=== PATIENT | female | born 2000 | race Caucasian/White ===

== ENCOUNTER → 2019-03-01 | Day surgery (SDC) | payer OTHER ==
[~2019-03-01] MED LIST: BUPIVACAINE 0.5% 30 ML SDV ONE; DEXAMETHASONE 4 MG/ML VIAL IVP PRN; DEXAMETHASONE 4 MG/ML VIAL ONE; ERTAPENEM 1 GM in NS 100 ML IV ONE; HYDROmorphONE/DILAUDID 1 MG/ML INJ IVP PRN; HYDROmorphONE/DILAUDID 2 MG/ML INJ IVP ONE; IOPAMIDOL (ISOVUE-300) 100 ML BTL ONE; LR 1,000 ML IV ONE; MIDAZOLAM 2 MG/2 ML VIAL IVP ONE; MIDAZOLAM 2 MG/2 ML VIAL ONE; NALOXONE HCL 0.4 MG/ML INJ IVP PRN; NS 1,000 ML IV ONE; ONDANSETRON 4 MG/2 ML VIAL IVP ONE; ONDANSETRON 4 MG/2 ML VIAL IVP PRN; ONDANSETRON 4 MG/2 ML VIAL ONE; PROPOFOL 200 MG/20 ML VIAL ONE; ROCURONIUM 50 MG/5 ML VIAL ONE; SUGAMMADEX SODIUM 200 MG/2 ML VIAL IVP ONE; fentaNYL 100 MCG/2 ML INJ ONE; oxyCODONE IR 5 MG TAB PO PRN
--- NOTE | 2019-03-01 04:10 | EDPHY ---
H & P Stated Complaint: epigastric pain Time Seen by Provider: 03/01/19 04:10 HPI/ROS: HPI CHIEF COMPLAINT: ABDOMINAL PAIN HISTORY OF PRESENT ILLNESS: Patient is a 19-year-old female she is otherwise healthy, denies any significant medical history she presents emergency room with abdominal pain. The abdominal pain started 3 hr ago does located the mid abdomen. She has had nausea but no vomiting, denies diarrhea, denies fever, denies urinary symptoms, denies chest pain or shortness of breath. Denies pleuritic pain. Pain is located mid abdomen. Burning and sharp stabbing sensation. Nonradiating. Past Medical History: Denies significant medical history Past Surgical History: Denies significant surgical history Social History: Denies drugs alcohol tobacco. Family History: Noncontributory ROS REVIEW OF SYSTEMS: 10 Systems were reviewed and negative with the exception of the elements mentioned in the history of present illness. Exam Constitutional triage nursing summary reviewed, vital signs reviewed, awake/ alert. Eyes normal conjunctivae and sclera, EOMI, PERRLA. HENT normal inspection, atraumatic, moist mucus membranes, no epistaxis, neck supple/ no meningismus, no raccoon eyes. Respiratory clear to auscultation bilaterally, normal breath sounds, no respiratory distress, no wheezing. Cardiovascular rate normal, regular rhythm, no murmur, no edema, distal pulses normal. Gastrointestinal mildly tender mid abdomen, no peritoneal signs, normal bowel sounds, no distension, no pulsatile mass. Genitourinary no CVA tenderness. Musculoskeletal no midline vertebral tenderness, full range of motion, no calf swelling, no tenderness of extremities, no meningismus, good pulses, neurovascularly intact. Skin pink, warm, & dry, no rash, skin atraumatic. Neurologic awake, alert and oriented x 3, AAOx3, moves all 4 extremities equally, motor intact, sensory intact, CN II-XII intact, normal cerebellar, normal vision, normal speech. Psychiatric normal mood/affect. Heme/Lymph/Immune no lymphadenopathy. Differential Diagnosis: Differential diagnosis includes but is not limited to and in no particular order: Bowel obstruction, appendicitis, gallbladder disease, diverticulitis, colitis, enteritis, perforated viscus, gastritis, GERD , esophagitis, urinary tract infection, pyelonephritis, kidney stones Medical Decision Making: Plan for this patient IV establishment IV fluid bolus , IV Dilaudid 0.5 mg for pain control IV Zofran for nausea, basic labs, CT scan abdomen pelvis with IV contrast to help delineate abdominal pain possible appendicitis. Re-evaluation: CT scan abdomen pelvis with IV contrast faxed to me by direct Radiology 5:20 a.m., this shows acute appendicitis. Retrocecal appendix measures approximately 10 cm in length is dilated measuring 8 mm in diameter and is intensely enhancing. IV Invanz ordered. I will consult surgery. Consulted Dr. Sadler, [id number]. Will plan on seeing patient/Dr. Anders . Source: Patient - Personal History LMP (Females 10-55): 1-7 Days Ago Current Tetanus Diphtheria and Acellular Pertussis (TDAP): Yes - Medical/Surgical History Hx Asthma: No Hx Chronic Respiratory Disease: No Hx Diabetes: No Hx Cardiac Disease: No Hx Renal Disease: No Hx Cirrhosis: No Hx Alcoholism: No Hx HIV/AIDS: No Hx Splenectomy or Spleen Trauma: No Other PMH: denies - Social History Smoking Status: Never smoked Constitutional: Initial Vital Signs Temperature (C) 36.6 C 03/01/19 03:56 Heart Rate 88 03/01/19 03:56 Respiratory Rate 16 03/01/19 03:56 Blood Pressure 142/94 H 03/01/19 03:56 O2 Sat (%) 97 03/01/19 03:56 O2 Delivery Mode Room Air O2 (L/minute) 2 Allergies/Adverse Reactions: No Known Allergies Allergy (Verified 03/01/19 08:03) Home Medications: Medication Instructions Recorded Herbals/Supplements -Info Only 1 each PO DAILY 03/01/19 Hydrocodone/Acetaminophen [[place] 1 each PO Q4H PRN #12 tablet 03/01/19 5-325 Tablet] Ibuprofen [Advil] 600 mg PO Q8 PRN #30 tablet 03/01/19 Medical Decision Making - Data Points Laboratory Results: Laboratory Results 03/01/19 04:20 03/01/19 04:20 Medications Given: Discontinued Medications Bupivacaine HCl (Sensorcaine 0.5% Vial) Confirm Administered Dose 30 ml .ROUTE .STK-MED ONE Stop: 03/01/19 09:52 Last Admin: 03/01/19 10:41 Dose: 22 ml Fentanyl (Sublimaze) 25 - 100 mcg IVP Q5M PRN PRN Reason: PACU, IMMEDIATE Pain control Stop: 03/01/19 10:48 Last Admin: 03/01/19 12:39 Dose: 50 mcg Hydromorphone HCl (Dilaudid) 0.5 mg IVP EDNOW ONE Stop: 03/01/19 04:16 Last Admin: 03/01/19 05:08 Dose: Not Given Sodium Chloride (Ns) 1,000 mls @ 0 mls/hr IV EDNOW ONE; Wide Open PRN Reason: Protocol Stop: 03/01/19 04:10 Last Admin: 03/01/19 04:21 Dose: 1,000 mls Ertapenem 1 gm/ Sodium (Chloride) 100 mls @ 200 mls/hr IV EDNOW ONE PRN Reason: Protocol Stop: 03/01/19 06:15 Last Admin: 03/01/19 06:43 Dose: Not Given Ceftriaxone Sodium/Dextrose (Rocephin 1 Gm (Premix)) 50 mls @ 100 mls/hr IV EDNOW ONE PRN Reason: Protocol Stop: 03/01/19 06:18 Last Admin: 03/01/19 06:30 Dose: 50 mls Metronidazole/Sodium Chloride (Flagyl 500 Mg (Premix)) 100 mls @ 100 mls/hr IV EDNOW ONE PRN Reason: Protocol Stop: 03/01/19 06:48 Last Admin: 03/01/19 06:37 Dose: 100 mls Lactated Ringer's (Lr) 1,000 mls @ 0 mls/hr IV ONCE ONE PRN Reason: As Directed Stop: 03/01/19 09:43 Last Admin: 03/01/19 09:55 Dose: 1,000 mls Midazolam HCl (Versed) 2 mg IVP ONCALL ONE Stop: 03/01/19 09:49 Last Admin: 03/01/19 10:05 Dose: 2 mg Ondansetron HCl (Zofran) 4 mg IVP EDNOW ONE Stop: 03/01/19 04:16 Last Admin: 03/01/19 05:08 Dose: Not Given Departure - Departure Disposition: [facility] Acute Clinical Impression: Acute appendicitis Qualifiers: Acute appendicitis type: with localized peritonitis Appendicitis gangrene presence: without gangrene Appendicitis perforation presence: without perforation Appendicitis abscess presence: without abscess Qualified Code(s): K35.30 - Acute appendicitis with localized peritonitis, without perforation or gangrene Condition: Good
[2019-03-01 04:30] LABS: PLATELET COUNT 361 10^3/uL (150-400)
--- NOTE | 2019-03-01 09:48 | PDANEPAE ---
KURT History of Present Illness Ashley HICKS Past Medical History - Cardiovascular History Hx Hypertension: No - Pulmonary History Hx COPD: No Hx Oxygen in Use at Home: No Hx Sleep Apnea: No - Endocrine History Hx Diabetes: No ANE Review of Systems Review of Systems: ANE Patient History - Allergies Allergies/Adverse Reactions: No Known Allergies Allergy (Verified 03/01/19 08:03) - Home Medications Home Medications: Herbals/Supplements -Info Only 1 each PO DAILY 03/01/19 [Last Taken Unknown] - NPO status NPO Since - Liquids (Date): 03/01/19 NPO Since - Liquids (Time): 00:00 NPO Since - Solids (Date): 03/01/19 NPO Since - Solids (Time): 00:00 - Smoking Hx Smoking Status: Never smoked KURT Labs/Vital Signs - Labs Result Diagrams: 03/01/19 04:20 03/01/19 04:20 - Vital Signs Blood Pressure: 116/83 Heart Rate: 84 Respiratory Rate: 18 O2 Sat (%): 97 Height: 170.18 cm Weight: 58.967 kg KURT Physical Exam - Airway Neck exam: FROM Mallampati Score: Class 2 Mouth exam: normal dental/mouth exam - Pulmonary Pulmonary: clear to auscultation - Cardiovascular Cardiovascular: regular rate and rhythym - ASA Status ASA Status: I, E ANE Anesthesia Plan Anesthesia Plan: general endotracheal anesthesia
--- NOTE | 2019-03-01 10:24 | GHP ---
[f rep st] HISTORY AND PHYSICAL DATE OF ADMISSION: 03/01/2019 CHIEF COMPLAINT: Acute appendicitis. HISTORY OF PRESENT ILLNESS: The patient is a 19-year-old woman who has had occasional abdominal pain throughout the weekend and in general has just not felt well. However, at midnight, she had significant abdominal pain starting in the mid abdomen, and then started radiating to the right lower quadrant. She denies vomiting. She has no sick contacts. She does report that it hurt going over the bumps on her way to the ER. PAST MEDICAL HISTORY: None. PAST SURGICAL HISTORY: None. SOCIAL HISTORY: Has used marijuana once, no regular use of it. No alcohol. No tobacco. FAMILY HISTORY: Noncontributory. REVIEW OF SYSTEMS: No fevers or chills. Otherwise per HPI. PHYSICAL EXAM: VITAL SIGNS: 36.7, 84, 115/83, 18, 97%. GENERAL: Pleasant, well-nourished, well-groomed woman, on gurney, with friend. HEENT: Normocephalic. No gross hearing deficits. Mucous membranes moist. Pupils equal and round. No scleral icterus. LUNGS: Clear to auscultation bilaterally. No increased work of breathing. CARDIAC: Regular rate. ABDOMEN : Soft. Bowel sounds present. She is tender in the right lower quadrant. Umbilical ring. MUSCULOSKELETAL: Normal nails. PSYCH: Mood and affect normal. RESULTS: White count 7.84. Her CT scan shows retrocecal appendicitis measuring 8.1 mm in diameter. IMPRESSION AND PLAN: A 19-year-old with acute appendicitis. I will take her to the operating room for a laparoscopic appendectomy. The risks and benefits, including, but not limited to, stroke, heart attack, , blood clots, infection, bleeding, damage to surrounding structures were discussed. She had her questions answered to her satisfaction. We discussed staying as an inpatient for pain control or if it becomes a complicated appendectomy. At this point in time, the patient prefers to go home. /[id number]/MODL MTDD
--- NOTE | 2019-03-01 10:55 | POSTOPPROG ---
Post Op Note Date of Operation: 03/01/19 Surgeon: Catalina Anders Anesthesiologist: alon Anesthesia: GET(General Endotracheal) Pre-op Diagnosis: acute appendicitis Post-op Diagnosis: same Indication: 19 yo with acute appendicitis Procedure: lap appy Findings: inflamed appendix Inf/Abcess present in the surg proc area at time of surgery?: No EBL: Minimal Specimen(s): appendix
[2019-03-01] MEDS: fentaNYL 100 MCG/2 ML INJ IVP PRN ×3 (11:13→12:39)
[2019-03-01 12:08] VITALS: BP 117/67
--- NOTE | 2019-03-01 19:26 | GOP ---
[f rep st] OPERATIVE REPORT DATE OF OPERATION: 03/01/2019 SURGEON: Catalina Anders MD ANESTHESIA: General. ANESTHESIOLOGIST: Jourdan Steinberg DO PREOPERATIVE DIAGNOSIS: Acute appendicitis. POSTOPERATIVE DIAGNOSIS: Acute appendicitis. PROCEDURE PERFORMED: Laparoscopic appendectomy. FINDINGS: Acutely inflamed retrocecal appendix. SPECIMENS: Appendix. ESTIMATED BLOOD LOSS: 5 cc. INDICATIONS: The patient is a 19-year-old who developed abrupt onset of abdominal pain around midnight. It was initially in the upper mid abdomen and then located to the right lower quadrant. CT scan was obtained which showed acute appendicitis. DESCRIPTION OF PROCEDURE: The patient was brought into the operating room, placed supine on the table, and general anesthesia was administered. Her abdomen was prepped and draped in the usual sterile fashion. I infiltrated all sites with 0.5% Marcaine prior to making incisions. I made an incision in her umbilicus. I inserted the Veress needle. It passed the hanging drop test, however, insufflation pressures were high. I reinserted the Veress needle and this time insufflation pressures were low and then I insufflated the abdomen to a pressure of 15 mmHg. I placed a 5 mm camera with a trocar at this site. I explored her abdomen. There was no evidence of perforation. Under direct vision, I placed a 5 mm suprapubic trocar and a 10 mm trocar in the left lower quadrant. I gently rotated her cecum medially and was able to identify the retrocecal appendix. I made a window in the mesoappendix and then divided the mesoappendix at the junction with the cecum with an Endo HUMAIRA 45 white load. I then continued to divide the remaining appendiceal attachments and the mesentery. Hemostasis achieved at the staple line. The appendix was placed in an EndoCatch bag and retrieved via the 10 mm trocar. No other abnormalities noted. Trocars removed under direct vision. The abdomen allowed to desufflate. Fascia closed with 0 Vicryl, skin closed with 4-0 Monocryl. Dermabond applied. She was awakened in the operating room, extubated, transferred to PACU in stable condition. /[id number]/MODL MTDD
== END | disposition home or self-care (01) ==
LOC: UNDOADMIN 05:50 → FSGY 09:46 → UNDODISIN 14:00
PROVIDERS: ATTEND Surgery
PROC: 0DTJ4ZZ Resection of Appendix, Percutaneous Endoscopic Approach (ICD-10-PCS; principal; 2019-03-01 10:00)
DX: K35.80 Unspecified acute appendicitis (principal)
CPT/HCPCS: 96374; J0696; J1100; J1170; J1335; J2250; J2405; J2704; J3010; Q9967

== ENCOUNTER 2019-03-09 17:36 | Emergency (ER) | payer OTHER ==
[2019-03-09] MEDS ORDERED: PROMETHAZINE HCL 25 MG/ML INJ IVP ONE (17:48)
[2019-03-09] MEDS ORDERED: KETOROLAC 30 MG/1 ML SDV IVP ONE (17:48)
[2019-03-09] MEDS ORDERED: NS 1,000 ML IV ONE (17:48)
--- NOTE | 2019-03-09 17:52 | EDPHY ---
H & P Stated Complaint: SAME PAIN BEFORE APPY, NAUSEA/ S/P APPY 7 DAYS Time Seen by Provider: 03/09/19 17:48 HPI/ROS: HPI: This is a 19-year-old female who presents with Chief Complaint: Right lower quadrant and left lower quadrant abdominal pain x7 days Location: Right lower quadrant and left lower quadrant abdominal Quality: Pain Duration: 7-8 days Signs and Symptoms: no fever, no nausea, no vomiting, no hematemesis, no blood in stool, no abdominal bloating, no diarrhea, no back pain, no urinary symptoms , no vaginal bleeding/discharge, no indigestion, no chest pain, no shortness of breath Timing: Daily but worse today Severity: Moderate Context: Patient was seen in this emergency room on 03/01/2019 diagnosed with appendicitis and had laparoscopic appendectomy performed by Dr. Catalina Anders. Patient was discharged home the same day with hydrocodone. She reports that she only to had to take hydrocodone pain medications for approximately a day and half. She is having daily bowel movements. Since the surgery she has had constant nausea but today and has worsened to moderate intensity. She has not vomited, no fevers, no diarrhea. She reports that today she developed right lower quadrant and left lower quadrant pain that is nonradiating in nature. Last menstrual period was 2 weeks ago. She reports that today she also started to developed some burning with urination. Passing gas from below. Modifying Factors: None Comment: ROS: A comprehensive 10 system review of systems is otherwise negative aside from elements mentioned in the history of present illness. MEDICAL/SURGICAL/SOCIAL HISTORY: Medical history: Generally healthy. Does not take any regular medications. Surgical history: Appendectomy 03/01/2019 Social history: Student at [employer]. Family history noncontributory. CONSTITUTIONAL: Extremely well-appearing young adult white female, awake and alert, no obvious distress HEENT: Atraumatic and normocephalic, PERRL, EOMI. Nares patent; no rhinorrhea; no nasal mucosal edema. Tympanic membranes clear. Oropharynx clear, no exudate and moist pink mucosa. Airway patent. No lymphadenopathy. No meningismus. Cardiovascular: Normal S1/S2, regular rate, regular rhythm, without murmur rub or gallop. PULMONARY/CHEST: Symmetrical and nontender. Clear to auscultation bilaterally. Good air movement. No accessory muscle usage. ABDOMEN: Soft, nondistended, moderate right lower quadrant and left lower quadrant tenderness, normoactive bowel sounds x4 quadrants, 3 portal sites in the right lower quadrant left lower quadrant and periumbilical area are well- approximated with no discharge or surrounding induration or erythema. no rebound, no guarding, no peritoneal signs, no masses or organomegaly. No CVAT. EXTREMITIES: 2/2 pulses, strength 5/5, no deformities, no clubbing, no cyanosis or edema. NEUROLOGICAL: no focal neuro deficits. GCS 15. SKIN: Warm and dry, no erythema. no rash. Good capillary refill. Source: Patient Exam Limitations: No limitations - Personal History LMP (Females 10-55): 8-14 Days Ago Current Tetanus Diphtheria and Acellular Pertussis (TDAP): Unsure - Medical/Surgical History Hx Asthma: No Hx Chronic Respiratory Disease: No Hx Diabetes: No Hx Cardiac Disease: No Hx Renal Disease: No Hx Cirrhosis: No Hx Alcoholism: No Hx HIV/AIDS: No Hx Splenectomy or Spleen Trauma: No Other PMH: APPY 02/2019 - Social History Smoking Status: Never smoked Constitutional: Initial Vital Signs Temperature (C) 36.8 C 03/09/19 17:42 Heart Rate 96 03/09/19 17:42 Respiratory Rate 16 03/09/19 17:42 Blood Pressure 111/70 03/09/19 17:42 O2 Sat (%) 96 03/09/19 17:42 O2 Delivery Mode Room Air Allergies/Adverse Reactions: No Known Allergies Allergy (Verified 03/01/19 08:03) Home Medications: Medication Instructions Recorded Magnesium Citrate [Magnesium 300 ml PO ONCE #1 bottle 03/09/19 Citrate 300 ml (*)] Ondansetron Odt [Zofran Odt 4 mg 4 mg PO Q4 PRN #12 tab 03/09/19 (*)] Medical Decision Making - Diagnostics Imaging Results: Imaging Impressions Abdomen X-Ray 03/09/19 17:48 Impression: Large amount retained fecal material in the colon compatible with constipation. Abdomen CT 03/09/19 17:53 Impression: 1. Interval appendectomy without evidence of abscess, perforation, or obstruction. 2. Large amount retained fecal material in the colon compatible with constipation. Junioralmaz Varela was notified of these findings by telephone at 7:13 PM on 03/09/2019. ED Course/Re-evaluation: Vital signs reviewed and stable upon arrival. IV access, laboratory studies, urinalysis, CT abdomen and pelvis scan with contrast ordered Given 1 L normal saline, IV Toradol, IV promethazine 12.5 mg 180: Notified by RN that: pt declined pain med and phen only wants zofran 1845: Labs reviewed. No signs of leukocytosis/anemia/platelet dysfunction/LEX/ elevated LFTs/electrolyte imbalance/pancreatitis/. 185: Abdominal x-ray my read shows moderate stool burden in the right lower quadrant and ascending colon with nonobstructive bowel gas pattern in the transcending colon 1914: CT abdomen and pelvis scan per Dr. Pacheco, shows moderate constipation but no signs of obstruction, perforation, ileus, obstipation, diverticulitis. Urinalysis shows no signs of infection. No hematuria. Patient given prescription for Zofran and magnesium citrate and MiraLax as needed. Tolerating p.o. And appropriate for outpatient treatment. This patient was seen under the supervision of my secondary supervising physician. I evaluated care for this patient with attending. Differential Diagnosis: Abdominal pain in a female including but not limited to ovarian cyst, pelvic inflammatory disease, ovarian torsion, urinary tract infection, and appendicitis. - Data Points Laboratory Results: Laboratory Results 03/09/19 17:57 03/09/19 17:57 03/09/19 03/09/19 03/09/19 19:10 17:57 17:57 WBC RBC Hgb Hct MCV MCH MCHC RDW Plt Count MPV Neut % (Auto) Lymph % (Auto) [place] % (Auto) Eos % (Auto) Baso % (Auto) Nucleat RBC Rel Count Absolute Neuts (auto) Absolute Lymphs (auto) Absolute Monos (auto) Absolute Eos (auto) Absolute Basos (auto) Absolute Nucleated RBC Immature Gran % Immature Gran # Sodium Potassium Chloride Carbon Dioxide Anion Gap BUN Creatinine Estimated GFR Glucose Calcium Total Bilirubin 0.3 mg/dL mg/dL (0.1-1.4) Conjugated Bilirubin 0.1 mg/dL mg/dL (0.0-0.5) Unconjugated Bilirubin 0.2 mg/dL mg/dL (0.0-1.1) AST 21 IU/L IU/L (14-46) ALT 20 IU/L IU/L (9-52) Alkaline Phosphatase 62 IU/L IU/L (38-126) Total Protein 7.7 g/dL g/dL (6.3-8.2) Albumin 4.7 g/dL g/dL (3.5-5.0) Beta HCG, Qual NEGATIVE Urine Color PALE YELLOW Urine Appearance CLEAR Urine pH 6.0 (5.0-7.5) Ur Specific [place] 1.026 (1.002-1.030) Urine Protein NEGATIVE (NEGATIVE) Urine Ketones NEGATIVE (NEGATIVE) Urine Blood NEGATIVE (NEGATIVE) Urine Nitrate NEGATIVE (NEGATIVE) Urine Bilirubin NEGATIVE (NEGATIVE) Urine Urobilinogen NEGATIVE EU EU (0.2-1.0) Ur Leukocyte Esterase NEGATIVE (NEGATIVE) Urine Glucose NEGATIVE (NEGATIVE) 03/09/19 03/09/19 17:57 17:57 WBC 8.10 10^3/uL 10^3/uL (3.80-9.50) RBC 4.80 10^6/uL 10^6/uL (4.18-5.33) Hgb 13.3 g/dL g/dL (12.6-16.3) Hct 39.9 % % (38.0-47.0) MCV 83.1 fL fL (81.5-99.8) MCH 27.7 pg L pg (27.9-34.1) MCHC 33.3 g/dL g/dL (32.4-36.7) RDW 13.1 % % (11.5-15.2) Plt Count 473 10^3/uL H 10^3/uL (150-400) MPV 10.3 fL fL (8.7-11.7) Neut % (Auto) 64.2 % % (39.3-74.2) Lymph % (Auto) 24.4 % % (15.0-45.0) [place] % (Auto) 7.8 % % (4.5-13.0) Eos % (Auto) 2.5 % % (0.6-7.6) Baso % (Auto) 0.7 % % (0.3-1.7) Nucleat RBC Rel Count 0.0 % % (0.0-0.2) Absolute Neuts (auto) 5.20 10^3/uL 10^3/uL (1.70-6.50) Absolute Lymphs (auto) 1.98 10^3/uL 10^3/uL (1.00-3.00) Absolute Monos (auto) 0.63 10^3/uL 10^3/uL (0.30-0.80) Absolute Eos (auto) 0.20 10^3/uL 10^3/uL (0.03-0.40) Absolute Basos (auto) 0.06 10^3/uL 10^3/uL (0.02-0.10) Absolute Nucleated RBC 0.00 10^3/uL 10^3/uL (0-0.01) Immature Gran % 0.4 % % (0.0-1.1) Immature Gran # 0.03 10^3/uL 10^3/uL (0.00-0.10) Sodium 137 mEq/L mEq/L (135-145) Potassium 4.3 mEq/L mEq/L (3.5-5.2) Chloride 105 mEq/L mEq/L (97-110) Carbon Dioxide 24 mEq/l mEq/l (22-31) Anion Gap 8 mEq/L mEq/L (6-14) BUN 9 mg/dL mg/dL (7-23) Creatinine 0.7 mg/dL mg/dL (0.6-1.0) Estimated GFR > 60 Glucose 90 mg/dL mg/dL (70-100) Calcium 9.7 mg/dL mg/dL (8.5-10.4) Total Bilirubin Conjugated Bilirubin Unconjugated Bilirubin AST ALT Alkaline Phosphatase Total Protein Albumin Beta HCG, Qual Urine Color Urine Appearance Urine pH Ur Specific [place] Urine Protein Urine Ketones Urine Blood Urine Nitrate Urine Bilirubin Urine Urobilinogen Ur Leukocyte Esterase Urine Glucose Medications Given: Discontinued Medications Sodium Chloride (Ns) 1,000 mls @ 0 mls/hr IV EDNOW ONE; Wide Open PRN Reason: Protocol Stop: 03/09/19 17:49 Last Admin: 03/09/19 17:59 Dose: 1,000 mls Ketorolac Tromethamine (Toradol) 30 mg IVP EDNOW ONE Stop: 03/09/19 17:49 Last Admin: 03/09/19 18:02 Dose: Not Given Ondansetron HCl (Zofran) 4 mg IVP EDNOW ONE Stop: 03/09/19 18:05 Last Admin: 03/09/19 18:06 Dose: 4 mg Promethazine HCl (Phenergan) 12.5 mg IVP EDNOW ONE Stop: 03/09/19 17:49 Last Admin: 03/09/19 18:03 Dose: Not Given Departure - Departure Disposition: Home, Routine, Self-Care Clinical Impression: History of appendectomy, Constipation by delayed colonic transit Condition: Good Instructions: Constipation (ED), High Fiber Diet (ED) Additional Instructions: Take Magnesium citrate 150 mL x1. If no bowel movement in 4-6 hours take the other 150 mL. Consume a minimum of 8-10 glasses of water or electrolyte fluid replacement drinks that include Gatorade, Powerade, Pedialyte. Eat a bland diet for the next 48 hours and then slowly advance as tolerated. Take Zofran every 4-6 hours as needed for nausea, vomiting. Take [id number] MiraLax daily as needed for constipation. Return to the Emergency Room if symptoms do not resolve in the next 72 hours, you spike a fever > 102 F, or experience intractable abdominal pain/nausea/ vomiting. Referrals: [facility],. [Clinic] - 3-4 days, if not improved Prescriptions: Magnesium Citrate [Magnesium Citrate 300 ml (*)] 300 ml PO ONCE #1 bottle Ondansetron Odt [Zofran Odt 4 mg (*)] 4 mg PO Q4 PRN #12 tab PRN Reason: Nausea/Vomiting, Use 1st
[2019-03-09] MEDS ORDERED: ONDANSETRON 4 MG/2 ML VIAL IVP ONE (18:04)
[2019-03-09 18:12] LABS: PLATELET COUNT 473 10^3/uL (150-400)
[2019-03-09] MEDS ORDERED: IOPAMIDOL (ISOVUE-300) 100 ML BTL ONE (18:40)
[2019-03-09 20:02] VITALS: BP 118/75
== END 2019-03-09 20:09 | disposition home or self-care (01) ==
DX: K59.01 Slow transit constipation (principal); Z98.890 Other specified postprocedural states
CPT/HCPCS: 96374; J1885; J2405; J2550; Q9967